=== PATIENT | male | born 1990 | race Two or more races ===

== ENCOUNTER 2020-04-29 15:12 | Emergency (ER) | payer MEDICAID, OTHER ==
[~2020-04-29] VITALS: Ht 177.8 cm; Wt 80.3 kg
[2020-04-29 15:35] VITALS: BP 134/88
[2020-04-29] MEDS ORDERED: IBUPROFEN 600 MG TABLET ONE (15:45)
--- NOTE | 2020-04-29 15:51 | NUR ---
Patient discharged to home in stable condition. Written and verbal after care instructions given. Patient verbalizes understanding of instruction.
[2020-04-29] MEDS ORDERED: IBUPROFEN 600 MG TABLET PO ONE (16:00)
== END 2020-04-29 15:51 | disposition home or self-care (01) ==
LOC: ER 15:20
DX: U07.1 COVID-19 (principal); R07.89 Other chest pain; E11.9 Type 2 diabetes mellitus without complications; R11.0 Nausea; R19.7 Diarrhea, unspecified

== ENCOUNTER 2021-01-07 14:23 | Emergency (ER) | payer MEDICAID ==
[~2021-01-07] VITALS: Ht 172.7 cm; Wt 99.8 kg
--- NOTE | 2021-01-07 15:15 | NUR ---
30 YEARS OLD MALE WITH PENILE DISCHARGE WALK IN TO ER FOR EVALUATION. DENIES FEVER, CHILLS, YELLOW DISCHARGE NOTED.
[2021-01-07] MEDS ORDERED: CEPH500C2 PO (15:30)
[2021-01-07] MEDS ORDERED: CLOT15CR27 TP (15:31)
[2021-01-07 15:44] VITALS: BP 130/80
--- NOTE | 2021-01-07 15:45 | NUR ---
patient seen evaluated by Dr Winn, condition stable d/c home with instructions after care reviewed understood left er ambulatory with steady gait.
== END 2021-01-07 15:47 | disposition home or self-care (01) ==
LOC: ER 14:33
DX: N47.6 Balanoposthitis (principal); E11.9 Type 2 diabetes mellitus without complications; Z79.899 Other long term (current) drug therapy

== ENCOUNTER 2021-03-08 12:33 | Emergency (ER) | payer MEDICAID ==
[~2021-03-08] VITALS: Ht 172.7 cm; Wt 102.1 kg
[~2021-03-08 12:33] MED LIST: CEPH500C2 PO; CLOT15CR27 TP
--- NOTE | 2021-03-08 13:14 | NUR ---
THE PATIENT BIBS FOR C/O R ANKLE PAIN AND SWELLING S/P FALL LAST WEDNESDAY. RATES PAIN 12/03. WILL CONTINUE TO MONITOR THE PATIENT.
--- NOTE | 2021-03-08 14:15 | NUR ---
[facility] CALLED. AWAITING CALL BACK.
[2021-03-08] MEDS ORDERED: TRAM50TA2 PO (14:54)
[2021-03-08] MEDS ORDERED: IBUP-1955 PO (14:54)
[2021-03-08] MEDS ORDERED: HYDROCODONE/APAP 5/325MG TABLET ONE (14:59)
[2021-03-08] MEDS ORDERED: IBUPROFEN 600 MG TABLET ONE (14:59)
[2021-03-08] MEDS ORDERED: IBUPROFEN 600 MG TABLET PO ONE (15:00)
[2021-03-08] MEDS ORDERED: HYDROCODONE/APAP 5/325MG TABLET PO ONE (15:00)
[2021-03-08 15:06] VITALS: BP 129/88
--- NOTE | 2021-03-08 15:06 | NUR ---
Patient discharged to home in stable condition. Written and verbal after care instructions given. Patient verbalizes understanding of instruction. The patient is picked up by .
== END 2021-03-08 15:07 | disposition home or self-care (01) ==
LOC: ER 12:33
DX: S82.431A Displaced oblique fracture of shaft of right fibula, initial encounter for closed fracture (principal); E11.9 Type 2 diabetes mellitus without complications; Z79.899 Other long term (current) drug therapy; X50.1XXA Overexertion from prolonged static or awkward postures, initial encounter; Y93.89 Activity, other specified; Y92.89 Other specified places as the place of occurrence of the external cause; Y99.8 Other external cause status
CPT/HCPCS: 73590-TC; 73610-TC